=== PATIENT | male | born 1975 | race Two or more races ===

== ENCOUNTER 2017-12-01 09:07 | Observation (INO) | payer SELFPAY ==
[~2017-12-01] VITALS: Ht 177.8 cm; Wt 102.1 kg
[2017-12-01 11:22] LABS: Albumin 4.1 g/dL (3.4-5.0); BUN/Creatinine Ratio 13.8; Calcium 9.8 mg/dL (8.5-10.1); Magnesium 2.6 mg/dL (1.6-2.6); Potassium 5.1 mmol/L (3.5-5.1)
[2017-12-01 11:24] LABS: Bilirubin, Total 0.7 mg/dL (0.2-1.0); Total Protein 9.6 g/dL (6.4-8.2)
[2017-12-01 11:30] LABS: Eosinophils # (auto) 0.1 uL
[2017-12-01 11:34] LABS: Basophils # (auto) 0 uL; Basophils % (auto) 0.4 % (0.0-2.0); Eosinophils % (auto) 0.8 % (0.0-7.0); Hematocrit 52.8 % (41.0-53.0); Hemoglobin 17.9 g/dL (13.5-17.5); Lymphocytes # (auto) 2.6 uL; Lymphocytes % (auto) 30.5 % (10.0-50.0); Mean Corpuscular Hemoglobin 28.6 pg (28.0-32.0); Mean Corpuscular Volume 84.3 fL (80.0-100.0); Monocytes # (auto) 0.6 uL; Monocytes % (auto) 7.6 % (0.0-12.0); Neutrophils # (auto) 5.1 uL; Neutrophils % (auto) 60.7 % (37.0-80.0); Nucleated Red Blood Cells % 0.4 %; Platelet Count (auto) 199 10^3/uL (140-450); Red Blood Cells 6.26 10^6/uL (4.5-5.90); Red Cell Distribution Width 14.5 % (11.8-14.3); White Blood Cell 8.4 10^3/uL (4.4-10.8)
[2017-12-01 20:37] LABS: Urine Bacteria NONE SEEN /hpf (None Seen); Urine Blood TRACE /uL (Negative); Urine Hyaline Cast MOD /lpf (0 - 2); Urine Mucus FEW (None Seen); Urine Specific Gravity 1.032 (1.001-1.035); Urine WBC 1 /hpf (0 - 3)
[2017-12-01] MEDS ORDERED: SODIUM CHLORIDE 0.9% 1,000 ML IVB ONE (21:47)
[2017-12-01] MEDS ORDERED: InsuLIN REG 1unit/0.01ml Soln (100units/ml) SC ONE (22:30)
[2017-12-02] MEDS ORDERED: SODIUM CHLORIDE 0.9% 1,000 ML IV ONE
[2017-12-02 02:46] VITALS: BP 99/61
== END 2017-12-02 03:14 | disposition home or self-care (01) | DRG 639 ==
LOC: MERGE 09:07 → ER 09:07 → EDBD 09:07 → OVERFLOW 21:48 → ER 12-02 03:14
PROVIDERS: ADMIT Family Medicine; ATTEND Family Medicine
DX: E11.65 Type 2 diabetes mellitus with hyperglycemia (principal); R53.1 Weakness; Z82.49 Family history of ischemic heart disease and other diseases of the circulatory system; Z83.3 Family history of diabetes mellitus
CPT/HCPCS: 36415; 71045; 80053; 81001; 82962; 83735; 85025; 96360; 96361; 96372; 99285; G0378; J1815; J7030

== ENCOUNTER 2020-08-31 13:55 | Emergency (ER) | payer OTHER ==
[~2020-08-31] VITALS: Ht 162.6 cm; Wt 101.2 kg
[2020-08-31] MEDS ORDERED: ACETAMINOPHEN 325 MG TAB PO ONE (14:30)
[2020-08-31] MEDS ORDERED: SODIUM CHLORIDE 0.9% 1,000 ML IVB ONE (15:45)
[2020-08-31] MEDS ORDERED: AZITHROMYCIN 500MG/ 250ML 250 ML IV ONE (15:45)
[2020-08-31 18:57] LABS: Basophils # (auto) 0 10 ^3/uL (0-0.2); Basophils % (auto) 0.2 % (0.0-2.0); Eosinophils # (auto) 0 10 ^3/uL (0-0.8); Hematocrit 51.8 % (41.0-53.0); Hemoglobin 17.1 g/dL (13.5-17.5); Lymphocytes # (auto) 1.6 10 ^3/uL (0.4-5.4); Lymphocytes % (auto) 22.7 % (10.0-50.0); Mean Corpuscular Hemoglobin 27.2 pg (28.0-32.0); Mean Corpuscular Volume 82.4 fL (80.0-100.0); Monocytes # (auto) 1.2 10 ^3/uL (0-1.3); Monocytes % (auto) 16.6 % (0.0-12.0); Neutrophils # (auto) 4.3 10 ^3/uL (1.6-8.6); Neutrophils % (auto) 60.5 % (37.0-80.0); Nucleated Red Blood Cells % 0.3 %; Platelet Count (auto) 213 10^3/uL (140-450); Red Blood Cells 6.29 10^6/uL (4.5-5.90); White Blood Cell 7.1 10^3/uL (4.4-10.8)
[2020-08-31 19:05] LABS: Calcium 8.7 mg/dL (8.5-10.1); Chloride 101 mmol/L (98-107); Sodium 133 mmol/L (136-145)
[2020-08-31 19:07] LABS: INR 1.1 (0.9-1.15); Partial Thromboplastin Time 32.5 sec (23.0-31.2)
[2020-08-31 19:08] LABS: Albumin 3.4 g/dL (3.4-5.0); Anion Gap 10 (5-15); BUN/Creatinine Ratio 10.5; Blood Urea Nitrogen 11 mg/dL (7-18); Carbon Dioxide 22 mmol/L (21-32); GFR African American 98 mL/min; GFR Non-African American 81 mL/min; Glucose 108 mg/dL (74-106); Magnesium 2.2 mg/dL (1.6-2.6)
[2020-08-31 19:23] LABS: Alanine Aminotransferase 34 U/L (16-61); Alkaline Phosphatase 53 U/L (45-117); Aspartate Aminotransferase 30 U/L (15-37); Bilirubin, Total 0.8 mg/dL (0.2-1.0); Total Protein 9.4 g/dL (6.4-8.2)
[2020-09-01 08:05] VITALS: BP 120/81
== END 2020-09-01 08:27 | disposition short-term general hospital (02) ==
LOC: ER 13:55
DX: J18.9 Pneumonia, unspecified organism (principal); F17.210 Nicotine dependence, cigarettes, uncomplicated; E11.9 Type 2 diabetes mellitus without complications; I10 Essential (primary) hypertension; Z20.828 Contact with and (suspected) exposure to other viral communicable diseases
CPT/HCPCS: 36415; 71045; 80053; 83605; 83735; 83880; 84484; 85025; 85610; 85730; 87040; 87426; 93005; 96365; 96366; 99285; C9803; J0456; U0003